=== PATIENT | male | born 1980 | race Hispanic/Latino ===

== ENCOUNTER 2018-12-14 19:04 | Inpatient (IN) | payer OTHER ==
--- NOTE | 2018-12-14 20:21 | C.PDOC ---
History Of Present Illness Patient presents to the ER requesting detox from heroin and fentanyl, last use was earlier today. Denies SI or HI. Time Seen by Provider: 12/14/18 20:21 Chief Complaint (Nursing): Substance Abuse History Per: Patient History/Exam Limitations: no limitations Onset/Duration Of Symptoms: Hrs Current Symptoms Are (Timing): Still Present Suicide/Self Injury Attempted (Context): None Modifying Factor(s): Other (Heroin, fentanyl) Severity: Moderate Pain Scale Rating Of: 4 Associated Symptoms: denies: Suicidal Thoughts, Other (Homicidal ideation) Involuntary Hold By: None Recent travel outside of the [place]: No Additional History Per: Patient Past Medical History Reviewed: Historical Data, Nursing Documentation, Vital Signs Vital Signs: Last Vital Signs Temp 98 F 12/14/18 19:55 Pulse 90 12/14/18 19:55 Resp 14 12/14/18 19:55 BP 103/69 12/14/18 19:55 Pulse Ox Primary Care Provider: Rosemary Foster R - Medical History PMH: Bipolar Disorder, Depression Family History: States: No Known Family Hx - Social History Hx Alcohol Use: No Hx Substance Use: Yes - Immunization History Hx Tetanus Toxoid Vaccination: Yes Hx Influenza Vaccination: Yes Hx Pneumococcal Vaccination: No Review Of Systems Constitutional: Negative for: Fever, Chills Cardiovascular: Negative for: Chest Pain, Palpitations Respiratory: Negative for: Cough, Shortness of Breath Gastrointestinal: Negative for: Nausea, Vomiting Neurological: Negative for: Weakness, Numbness Physical Exam - Physical Exam Appears: Non-toxic Skin: Warm, Dry Head: Normacephalic Oral Mucosa: Moist Chest: Symmetrical, No Tenderness Cardiovascular: Rhythm Regular Respiratory: No Rales, No Rhonchi, No Wheezing Gastrointestinal/Abdominal: Soft, No Tenderness Extremity: No Tenderness Neurological/Psych: Oriented x3 Gait: Steady ED Course And Treatment - Laboratory Results Result Diagrams: 12/14/18 21:03 12/14/18 21:03 Progress Note: Blood work and urinalysis ordered. Crisis notified. Disposition Discussed With : Wade Medeiros Comment: accepted the pt on his service and took over the care at 10:52 PM Doctor Will See Patient In The: Hospital Counseled Patient/Family Regarding: Studies Performed, Diagnosis - Disposition Disposition: HOSPITALIZED Disposition Time: 20:21 Condition: FAIR Forms: [facility] ([place]) - POA Present On Arrival: None - Clinical Impression Clinical Impression: Opioid use disorder, severe, dependence - Scribe Statement The provider has reviewed the documentation as recorded by the Scribcindy Serna All medical record entries made by the Scribe were at my direction and personally dictated by me. I have reviewed the chart and agree that the record accurately reflects my personal performance of the history, physical exam, medical decision making, and the department course for this patient. I have also personally directed, reviewed, and agree with the discharge instructions and disposition. Decision To Admit - Pt Status Changed To: Hospital Disposition Of: Observation - . Bed Request Type: Detox Admitting Physician: Wade Medeiros Patient Diagnosis: Opioid use disorder, severe, dependence
[2018-12-14 21:12] LABS: BASO % 0.3 % (0.0-2.0); EOS # 0.1 K/uL (0.0-0.7); EOS % 1.9 % (0.0-4.0); HEMOGLOBIN 15.4 g/dL (12.0-18.0); LYMPH # 2.1 K/uL (1.0-4.3); MEAN CELL VOLUME 88.4 fL (80.0-94.0); MEAN CORPUSCULAR HEMOGLOBIN 30.4 pg (27.0-31.0); MEAN CORPUSCULAR HGB CONC 34.4 g/dL (33.0-37.0); MEAN PLATELET VOLUME 8.7 fL (7.2-11.7); MONO # 0.3 K/uL (0.0-0.8); MONO % 5.8 % (0.0-10.0); NEUT # 2.8 K/uL (1.8-7.0); NRBC % 0.1 % (0.0-2.0); RBC 5.08 Mil/uL (4.40-5.90); RED CELL DISTRIBUTION WIDTH 12.8 % (11.5-14.5); WHITE BLOOD COUNT 5.3 K/uL (4.8-10.8)
[2018-12-14 21:26] LABS: ALB/GLOB RATIO 1.4 (1.0-2.1); ALBUMIN 4.2 g/dL (3.5-5.0); ALT/SGPT 134 U/L (21-72); AST/SGOT 37 U/L (17-59); BLOOD UREA NITROGEN 14 mg/dL (9-20); CALCIUM 8.4 mg/dl (8.6-10.4); GFR NON-AFRICAN AMERICAN > 60
[2018-12-14 21:50] LABS: URINE BILIRUBIN NEGATIVE (NEGATIVE); URINE BLOOD NEGATIVE (NEGATIVE); URINE CLARITY Clear (Clear); URINE COLOR Yellow (YELLOW); URINE GLUCOSE (UA) NORMAL (Normal); URINE LEUKOCYTE ESTERASE NEG Leu/uL (Negative); URINE PROTEIN NEGATIVE (NEGATIVE)
[2018-12-14 22:10] LABS: BARBITURATES, UR NEGATIVE (NEGATIVE); BENZODIAZEPINES, UR NEGATIVE (NEGATIVE); PHENCYCLIDINE, UR NEGATIVE (NEGATIVE)
[2018-12-14 22:15] LABS: OPIATES, UR POSITIVE (NEGATIVE)
--- NOTE | 2018-12-14 23:15 | PCM.BM ---
<Kameron Dovekathi Martinez - Last Filed: 12/14/18 23:14> Treatment Plan Problems - Problems identified on initial assessmt Chronic Low Self Esteem Date Initiated: 12/14/18 Time Initiated: 23:14 Assessment reference: NA Status: Active Treatment assets and liabiliti Patient Assests: ADL independent Patient Liabilities: substance abuse - Milieu Protocol Maintain good personal hygiene: daily Encourage regular showers, daily Remind patient to perform daily oral care, daily Assist patient to perform ADL's Conduct patient checks and document Observation sheet: Q15 minutes Maintain personal safety: every shift Educate patient to report safety concerns to staff, every shift Monitor environment for contraband/sharps Medication safety: Monitor for expected outcome, potential side effects: every shift, Assess barriers to learning: every shift, Assess readiness for medication education: every shift <Sherlyn Barrera - Last Filed: 12/15/18 14:30> - Diagnosis (1) Opioid use disorder, severe, dependence Status: Acute Interventions: 12/15/18 14:30 * Assess 7x/week regarding severity of withdrawal * Educate regarding risks, benefits, side effects and alternatives of medications * Use Motivational Interviewing for abstinence * Use CBT for relapse prevention * Medication management for withdrawal symptoms * Encourage medication assisted treatment * <Alia Reveles - Last Filed: 12/15/18 14:59> Family Contact Family involvement: [place] not involved - Goals for Treatment Patient goals for treatment: Complete detox and transition to Suboxone maintenance, Discharge/Continuing Care - Education Needs Education Needs: Patient Medication, Patient Diagnosis/Disease Process, Patient Coping Skills, Patient Anger Management skills, Patient Placement options, Patient Community resources - Discharge Discharge Criteria: No longer exhibiting s/s of withdrawal, Reduction of target symptoms Discharge to:: Home - Treatment Team Participation Patient/Family/SO Statement: 12/15/18 14:59 "I wanna try Suboxone maintenance when I finish here..." Discussed with Family/SO: No Was Patient/Family/SO present at Treatment Team Meeting: Yes
[2018-12-15] MEDS ORDERED: Aluminum Hydroxide/Magnesium Hydroxide Susp (30 mL) PO PRN (08:33)
--- NOTE | 2018-12-15 08:33 | PCM.PSYCH ---
Initial Psychiatric Evaluation - Initial Psychiatric Evaluation Type of Admission: Voluntary Legal Status: Capacity History of Present Illness and Precipitating Events: Switched from OBS to INPAT Pt is a male with PMHx of GERD and polysubstance use disorder who presents to [facility] on 12/14/18 for detox. This is his first time here at [facility]. His usage keeps getting more and cant take it anymore and he decided to bring himself in. He uses fentanyl/heroin mix and he shoots it. His last use was 2 days age in the afternoon. He has been using 2535 bags per day for the past 4 months. However, he first tried it 2 years ago. Since then he has overdosed 2x, both times his friends woke him up. He has also tried in the past everything and lists cocaine, meth, marijuana, LSD. His last use of these substances was 1 year ago. He currently feels hot and cold, sweaty, dizziness, tearing, and his throat is dry. He denies N/V and D/C. attempted to intentionally overdose 3 or 4x. The last time he attempted was 1 month ago. He has trouble sleeping, feels guilty (someone in front him while both were using together), hopelessness, appetite lability (lost 15lbs over 4 months), anxiety, and has been depressed for the past 2 or 3 years. He also says he has spent excessive amounts of money, talking really fast, increased energy despite lack of sleep. He experiences these manic symptoms every day for couple of hours. He denies feeling invincible. Current Medications: Active Medications Generic Name Dose Route Start Last Admin Trade Name Alyson PRN Reason Stop Dose Admin Pneumococcal Polyvalent Vaccine 0.5 ml 12/18/18 10:00 Pneumovax 23 Vaccine IM 12/18/18 10:01 .ONCE ONE Trazodone HCl 50 mg 12/15/18 00:28 12/15/18 01:05 Desyrel PO 50 mg HS PRN Administration Insomnia Past Psychiatric History - Past Psychiatric History Pertinent Medical Hx (Current Medical&Sleep Prob, Allergies): Allergies Allergy/AdvReac Type Severity Reaction Status Date / Time No Known Allergies Allergy Unverified 12/14/18 19:59 chlorproMAZINE [chlorpromazine HCl] 100 mg PO TID 05/01/19 traZODone [trazodone Hydrochloride] 100 mg PO HS 12/14/18
[2018-12-15] MEDS: Pantoprazole 20 mg EC Tab PO SCH (11:16)
[2018-12-15 17:45] VITALS: O2SAT 98
[2018-12-16 09:48] VITALS: BP 112/80; PULSE 80; RESP 20; TEMP 97.7
[2018-12-16] MEDS: Pantoprazole 20 mg EC Tab PO SCH (10:22)
--- NOTE | 2018-12-16 11:06 | PCM.PYCHDC ---
Mental Status Examination - Mental Status Examination Orientation: Person Discharge Summary - Discharge Note Consultations:: List each consultation separately and include: 1. Reason for request. 2. Findings. 3. Follow-up Summary of Hospital Course include:: 1. Description of specific treatment plan utilized for patients during their course of treatmen. 2. Summarize the time- course for resolution of acute symptoms and/or regressed behaviors. 3. Describe issues identified and worked on during hospitalization. 4. Describe medication utilized. 5. Describe medical problems identified and treated. 6. Reassessment of suicide risk Summary of Hospital Course: Switched from OBS to INPAT Pt is a male with PMHx of GERD and polysubstance use disorder who presents to [facility] on 12/14/18 for detox. This is his first time here at [facility]. His usage keeps getting more and cant take it anymore and he decided to bring himself in. He uses fentanyl/heroin mix and he shoots it. His last use was 2 days age in the afternoon. He has been using 2535 bags per day for the past 4 months. However, he first tried it 2 years ago. Since then he has overdosed 2x, both times his friends woke him up. He has also tried in the past everything and lists cocaine, meth, marijuana, LSD. His last use of these substances was 1 year ago. He currently feels hot and cold, sweaty, dizziness, tearing, and his throat is dry. He denies N/V and D/C. attempted to intentionally overdose 3 or 4x. The last time he attempted was 1 month ago. He has trouble sleeping, feels guilty (someone in front him while both were using together), hopelessness, appetite lability (lost 15lbs over 4 months), anxiety, and has been depressed for the past 2 or 3 years. He also says he has spent excessive amounts of money, talking really fast, increased energy despite lack of sleep. He experiences these manic symptoms every day for couple of hours. He denies feeling invincible. - Diagnosis (1) Opioid use disorder, severe, dependence Current Visit: Yes Status: Acute - Final Diagnosis (DSM 5) Condition upon Discharge: FAIR Disposition: AGAINST MEDICAL ADVICE
[2018-12-18] MEDS ORDERED: Pneumococcal 23-Valent Vaccine IM ONE (10:00)
== END 2018-12-16 11:19 | disposition left against medical advice (07) | DRG 743 ==
LOC: C.ER 19:04 → C.9E 22:49 → C.7D 23:02 → OBSVTOIN 12-15 08:30
PROVIDERS: ADMIT Psychiatry & Neurology Psychiatry; ATTEND Psychiatry & Neurology Psychiatry
DX: F11.20 Opioid dependence, uncomplicated (principal); K21.9 Gastro-esophageal reflux disease without esophagitis; F31.9 Bipolar disorder, unspecified